=== PATIENT | male | born 1970 | race Hispanic/Latino ===

== ENCOUNTER 2024-12-04 07:34 | Inpatient (IN) | payer SELFPAY ==
[~2024-12-04] VITALS: Ht 167.6 cm; Wt 90.7 kg
[~2024-12-04 07:34] MED LIST: METF-444 PO; SULF-168 PO
--- NOTE | 2024-12-04 08:00 | NUR ---
Patient states that he was in the shower and while he was cleaning his penis he pulled the foreskin back and could not pull it back over the head of his penis, the foreskin. he did try to pull it forward, but the trauma caused some bleeding. upon assessment the head of patient penis is pink in color, with some small blood clots, and some small abrasions, no active bleeding at this time, pain 10/10
[2024-12-04] MEDS: teTANUS/diphthERIA TOXOID [ADULT] 0.5 ML VIAL IM ONE (08:32)
[2024-12-04] MEDS: cefTRIAXone 1G VIAL IVPB ONE (08:33)
[2024-12-04] MEDS: Solu-medROL 125MG VIAL IVP ONE (08:33)
[2024-12-04 08:57] LABS: BASOPHILS # (AUTO) 0.04 K/uL (0.00-0.20); BASOPHILS % (AUTO) 0.6 % (0.0-5.0); EOSINOPHILS # (AUTO) 0.13 K/uL (0.00-0.70); EOSINOPHILS % (AUTO) 2.1 % (0.0-8.0); HEMATOCRIT 41.1 % (42-54); IMMATURE GRANULOCYTE ABSOLUTE 0.05 K/uL (0-1); LYMPHOCYTES % (AUTO) 31.9 % (21.0-51.0); MEAN CORPUSCULAR HEMOGLOBIN 30.7 pg (27.0-33.0); MEAN CORPUSCULAR HGB CONC 34.5 g/dL (32.0-36.0); MEAN CORPUSCULAR VOLUME 88.8 fL (79-99); MONOCYTES # (AUTO) 0.4 K/uL (0.1-1.0); MONOCYTES % (AUTO) 6.4 % (3.0-13.0); NEUTROPHILS # (AUTO) 3.7 K/uL (1.8-7.7); NEUTROPHILS % (AUTO) 58.2 % (40.0-77.0); PLATELET COUNT (AUTO) 326 K/uL (130-400); RED BLOOD CELL COUNT(AUTO) 4.63 MIL/uL (4.50-6.20); RED CELL DISTRIBUTION WIDTH 12.2 % (11.0-15.5); WHITE BLOOD COUNT (AUTO) 6.3 K/uL (4.8-10.8)
[2024-12-04 09:09] LABS: CREATININE 0.6 mg/dL (0.5-1.3); POTASSIUM 3.6 mmol/L (3.5-5.1)
[2024-12-04 09:16] LABS: APPEARANCE,URINE CLEAR (CLEAR); BILIRUBIN,URINE NEGATIVE (NEGATIVE); COLOR,URINE LIGHT-YELLOW (YELLOW); GLUCOSE, URINE (UA) >=1000 mg/dL (NEGATIVE); KETONES,URINE 20 mg/dL (NEGATIVE); LEUKOCYTE ESTERASE ,URINE NEGATIVE Leu/uL (NEGATIVE); MUCUS,URINE RARE LPF (None Seen); NITRATE,URINE NEGATIVE (NEGATIVE); OCCULT BLOOD,URINE SMALL (NEGATIVE); PROTEIN,URINE 10 mg/dL (NEGATIVE); SQUAMOUS EPITHELIAL CELL,UR RARE /HPF (0-2); UROBILINOGEN,URINE 0.2 mg/dL (0.2-1.0); WBC,URINE 0-1 /HPF (0-1)
--- NOTE | 2024-12-04 09:20 | ERN ---
General Chief Complaint: Penis Problem Stated Complaint: PENILE BLEEDING Time Seen by MD: 07:42 Source: patient History of Present Illness Initial Comments PATIENT IS A 53-YEAR-OLD MALE COMING IN TO BE EVALUATED FOR PENILE PROBLEMS. PER PATIENT HE WAS TAKING A SHOWER STARTED HAVING PROBLEMS RETRACTING THE FORESKIN AND STATES THAT HE TRIED TO PULL IT AND NOTICED BLOOD COMING OUT SO HE IS HERE FOR FURTHER EVALUATION. Allergies: Coded Allergies: No Known Drug Allergies (Unverified Allergy, Unknown, 04/01/16) Home Meds Active Scripts Metformin HCl (Metformin HCl) 500 Mg Tablet, 500 MG PO BID, #60 TAB 3 Refills Prov:LYNDSEY BRIGHT MD 04/02/16 Sulfamethoxazole/Trimethoprim (Bactrim Ds/Septra Ds) 1 Tab Tab, 1 TAB PO BID, #28 TAB Prov:LYNDSEY BRIGHT MD 04/02/16 Past Medical History Past Medical History: Diabetes-Type II Past Surgical History: None ROS Dictation CONSTITUTIONAL: NO CHILLS, NO FEVER, NO WEAKNESS, NO DIAPHORESIS, NO MALAISE. HEAD/FACE: NO SIGNS OF TRAUMA. EENT: NO EYE PAIN, NO BLURRED VISION, NO TEARING, NO DOUBLE VISION, NO EAR PAIN, NO EAR DISCHARGE, NO NOSE PAIN, NO NASAL CONGESTION, NO THROAT PAIN, NO THROAT SWELLING, NO MOUTH PAIN. RESPIRATORY: NO COUGH, NO ORTHOPNEA, NO SOB, NO STRIDOR, NO WHEEZING. CARDIOVASCULAR: NO CHEST PAIN, NO EDEMA, NO PALPITATIONS, NO SYNCOPE. GASTROINTESTINAL/ABDOMINAL: NO ABDOMINAL PAIN, NO CONSTIPATION, NO DIARRHEA, NO NAUSEA, NO VOMITING. GENITOURINARY: NO ABNORMAL DISCHARGE, NO DYSURIA, NO FREQUENT URINATION, NO HEM ATURIA. COMPLAINTS OF PAIN IN THE GENITALS. MUSCULOSKELETAL: NO BACK PAIN, NO GOUT, NO JOINT PAIN, NO JOINT SWELLING, NO MUSCLE PAIN, NO MUSCLE STIFFNESS, NO NECK PAIN. INTEGUMENTARY: NO CHANGE IN COLOR, NO CHANGE IN HAIR/NAILS, NO DRYNESS, NO LESION, NO LUMPS, NO RASH. NEUROLOGICAL/PSYCH: NO ANXIETY, NOT DEPRESSED, NO EMOTIONAL PROBLEM, NO HEADACHE, NO NUMBNESS, NO PRE-EXISTING DEFICIT, NO HISTORY OF SEIZURES, NO TREMORS, NO WEAKNESS. HEMATOLOGIC/LYMPHATIC: NOT ANEMIC, NO HISTORY OF BLOOD CLOTS, NO APPARENT BLEEDING, NO BRUISING, GLANDS NOT SWOLLEN. ALL SYSTEMS NEGATIVE, EXCEPT NOTED. Physical Exam Physical Exam Dictation VITAL SIGNS: REVIEWED. GENERAL APPEARANCE: ALERT, ORIENTED X3, NO ACUTE DISTRESS, OBESE. HEAD AND FACE: NON-TRAUMATIC. EYES: PERRL, PINK CONJUNCTIVAS, EYELID NO TRAUMA, ANTERIOR CHAMBER CLEAR. EARS: PINNAS INTACT AND NO SIGNS OF TRAUMA OR ERYTHEMA. EAR CANALS CLEAR AND NO DISCHARGE. TMS NO ERYTHEMA. NOSE: NO DISCHARGE, NO BLEEDING. OROPHARYNX: MOUTH NORMAL, TEETH NO CARIES, TONGUE PINK. PHARYNX CLEAR, NO ERYTHEMA. TONSILS NO EXUDATES, NO ABSCESSES NOTED. MUCOUS MEMBRANE MOIST. NECK: SUPPLE, NON-TENDER, NO THYROMEGALY, NO MASSES, NO JVD, NO BRUITS. BREAST: DEFERRED. CHEST: NO TENDERNESS, NO CREPITUS, NO PARADOXICAL MOVEMENT, NO RETRACTIONS. LUNGS: CLEAR, WELL-VENTILATED, SYMMETRIC, NO RALES, NO WHEEZING, NO RHONCHI, NO STRIDOR, GOOD BREATH SOUNDS BILATERALLY. HEART: REGULAR RATE, REGULAR RHYTHM, NO MURMUR, NO GALLOPS. VASCULAR: NO PERIPHERAL EDEMA. ABDOMEN: SOFT, POSITIVE BOWEL SOUNDS, NONDISTENDED, NO GUARDING, NONTENDER, NO REBOUND, NO MASSES NO HEPATOMEGALY, NO SPLENOMEGALY, NO TRAN'S SIGN, NO HERNIAS. RECTAL: DEFERRED. GENITAL: SWELLING OF THE PENIS, MILD BLOOD NOTICED NEUROLOGICAL: NORMAL SPEECH, GROSS MOTOR FUNCTION INTACT, GROSS SENSORY FUNCTION INTACT. MUSCULOSKELETAL: NECK NONTENDER, FULL RANGE OF MOTION, BACK NONTENDER, FULL RANGE OF MOTION. EXTREMITIES: NONTENDER, FULL RANGE OF MOTION. SKIN: COLOR PINK, DRY, NO TURGOR, NO RASH, NO LACERATIONS, NO ABRASIONS, NO CONTUSIONS. LYMPHATICS: DEFERRED. Results Laboratory and Microbiology Lab and Micro Result Laboratory Tests Test 12/04/24 07:55 12/04/24 08:55 White Blood Count 6.3 K/uL (4.8-10.8) Red Blood Count 4.63 MIL/uL (4.50-6.20) Hemoglobin 14.2 g/dL (14.0-18.0) Hematocrit 41.1 % (42-54) L Mean Corpuscular Volume 88.8 fL (79-99) Mean Corpuscular Hemoglobin 30.7 pg (27.0-33.0) Mean Corpuscular Hemoglobin Concent 34.5 g/dL (32.0-36.0) Red Cell Distribution Width 12.2 % (11.0-15.5) Platelet Count 326 K/uL (130-400) Mean Platelet Volume 9.2 fL (7.5-10.5) Immature Granulocyte % (Auto) 0.8 % (0-1) Neutrophils (%) (Auto) 58.2 % (40.0-77.0) Lymphocytes (%) (Auto) 31.9 % (21.0-51.0) Monocytes (%) (Auto) 6.4 % (3.0-13.0) Eosinophils (%) (Auto) 2.1 % (0.0-8.0) Basophils (%) (Auto) 0.6 % (0.0-5.0) Neutrophils # (Auto) 3.7 K/uL (1.8-7.7) Lymphocytes # (Auto) 2.0 K/uL (1.0-4.8) Monocytes # (Auto) 0.4 K/uL (0.1-1.0) Eosinophils # (Auto) 0.13 K/uL (0.00-0.70) Basophils # (Auto) 0.04 K/uL (0.00-0.20) Absolute Immature Granulocyte (auto 0.05 K/uL (0-1) Nucleated Red Blood Cells 0.0 % (0.0-0.19) Sodium Level 140 mmol/L (136-145) Potassium Level 3.6 mmol/L (3.5-5.1) Chloride Level 101 mmol/L (101-111) Carbon Dioxide Level 26 mmol/L (21-32) Blood Urea Nitrogen 8 mg/dL (7-18) Creatinine 0.6 mg/dL (0.5-1.3) Glomerular Filtration Rate Calc 117 mL/min (>90) Random Glucose 250 mg/dL (70-105) H Total Calcium 8.9 mg/dL (8.5-10.1) Urine Color LIGHT-YELLOW (YELLOW) Urine Appearance CLEAR (CLEAR) Urine pH 5.0 (5.0-8.0) Urine Specific [place] 1.023 (1.001-1.031) Urine Protein 10 mg/dL (NEGATIVE) H Urine Glucose (UA) >=1000 mg/dL (NEGATIVE) H Urine Ketones 20 mg/dL (NEGATIVE) H Urine Occult Blood SMALL (NEGATIVE) H Urine Nitrate NEGATIVE (NEGATIVE) Urine Bilirubin NEGATIVE mg/dL (NEGATIVE) Urine Urobilinogen 0.2 mg/dL (0.2-1.0) Urine Leukocyte Esterase NEGATIVE Drake/uL Urine RBC 2-5 /HPF (0-1) H Urine WBC 0-1 /HPF (0-1) Urine Squamous Epithelial Cells RARE /HPF (0-2) Urine Bacteria None /HPF (None Seen) Labs Reviewed?: Yes MDM MDM: DIFFERENTIAL DIAGNOSIS: PHIMOSIS, PENILE PROBLEM, RATIONALE: TESTS CONSIDERED AND ORDERED SECONDARY TO SHARED DECISION MAKING INCLUDE: LABS, ECG AND RADIOLOGY PREVIOUS OUTSIDE RECORDS REVIEWED: OLD ER VISITS. RISK OF COMPLICATION AND/OR MORBIDITY OR MORTALITY OF PATIENT MANAGEMENT: NONE MEDICATIONS-PER MEDICATION RECONCILIATION NEED FOR HOSPITALIZATION: PATIENT DOES MEET CRITERIA FOR HOSPITALIZATION. NEED FOR EMERGENCY MAJOR/MINOR SURGERY: NO THERE ARE NO SOCIAL CONCERNS WITH THIS PATIENT. PRESCRIPTION DRUG MANAGEMENT PRESCRIPTIONS WILL INCLUDE SYMPTOMATIC CARE PATIENT'S PRIOR EXTERNAL MEDICAL RECORDS FROM OTHER ER VISITS WERE REVIEWED BY ME INDICATED. PRIOR TESTING AND RESULTS FROM PREVIOUS VISITS WERE REVIEWED. PRIOR TESTS WERE TAKEN INTO ACCOUNT WITH MEDICAL DECISION MAKING AND RESOURCE UTILIZATION, INDEPENDENT HISTORIAN/HISTORIANS WERE USED TO OBTAIN COMPLETE MEDICAL HISTORY. I INDEPENDENTLY INTERPRETED THE TEST THAT WERE PERFORMED, RESULTS WERE REVIEWED BY ME AND CONSIDERED FINDINGS ON RADIOLOGY IF ORDERED. MEDICAL MANAGEMENT AND EXAMINATION INTERPRETATION DISCUSSIONS WERE HAD BY ME WITH OTHER QUALIFIED HEALTHCARE PROFESSIONALS INDICATED FOR THE PATIENT'S CARE. PATIENT IS A 53-YEAR-OLD GENTLEMAN COMING IN TO BE EVALUATED FOR PENILE PAIN. ON PHYSICAL EXAM THAT HAS PHIMOSIS PRESENT WITH SOME DISCOMFORT SOME ABRASIONS HE STATES HE HAS TRIED TO PULL IT BACK HIS FORESKIN BUT IT WAS HAVING PAIN. PATIENT WILL BE ADMITTED UNDER THE CARE OF HOSPITALIST GROUP FOR ONGOING MANAGEMENT. UROLOGIST DR. Banks HAS BEEN CONSULTED. ED Course Orders Procedure Category Date Status Time Cbc With Differential LAB 12/04/24 Complete 07:45 Basic Metabolic Panel LAB 12/04/24 Complete 07:45 Urinalysis LAB 12/04/24 Complete W/Microscopic 07:45 Methylprednisolone PHA 12/04/24 Complete Succ 125mg (Solu-Medr 08:00 Tetanus,Diphtheria PHA 12/04/24 Complete Tox [Adult] (Diphther 08:00 Ceftriaxone 1g Vial PHA 12/04/24 Complete (Rocephine 1g Inj) 08:00 Dexamethasone 4mg/Ml PHA 12/04/24 Complete 1ml Vial (Dexametha 10:00 Ketorolac PHA 12/04/24 Complete Tromethamine 15mg/Ml 10:00 0.9%Nacl 1000ml (Ns PHA 12/04/24 Complete 1000ml) 10:00 Current Medications Medications (Trade) Dose Ordered Sig/Adelina Route PRN Reason Start Time Stop Time Status Last Admin Dose Admin Ceftriaxone Sodium (ROCEphine 1G INJ) 1 gm ONCE ONCE IVPB 12/04/24 08:00 12/04/24 08:01 DC 12/04/24 08:33 Dexamethasone Sodium Phosphate (dexaMETHasone 4MG/ML 1ML VIAL) 4 mg ONCE ONCE IV 12/04/24 10:00 12/04/24 10:01 DC 12/04/24 10:03 Ketorolac Tromethamine (toRADol) 15 mg ONCE ONCE IV 12/04/24 10:00 12/04/24 10:01 DC 12/04/24 10:03 Methylprednisolone Sodium Succinate (Solu-medROL 125MG) 125 mg ONCE ONCE IVP 12/04/24 08:00 12/04/24 08:01 DC 12/04/24 08:33 Sodium Chloride 1,000 ml @ 0 mls/hr ONCE ONCE IV 12/04/24 10:00 12/04/24 10:01 DC 12/04/24 10:04 Tetanus/ Diphtheria Toxoids Adsorbed (DiphthERIA-teTANUS TOXOID [ADULT]/ DECAVAC) 0.5 ml ONCE ONCE IM 12/04/24 08:00 12/04/24 08:01 DC 12/04/24 08:32 Vital Signs Date Time Temp Pulse Resp B/P (MAP) Pulse Ox O2 Delivery O2 Flow Rate FiO2 12/04/24 09:00 97.9 112 18 132/82 99 Room Air* 0 21 12/04/24 07:45 98.1 116 18 120/73 98 Room Air* 0 12/04/24 07:35 98.1 123 20 133/83 99 Room Air 0 DX & DISP Disposition: Inpatient Decision to Admit Time: 10:51 Departure Impression: Primary Impression: Phimosis of penis Additional Impression: Penile abrasion Condition: Stable Referrals: SELF,REFERRAL (PCP) ARANZA MORATAYA MD December 04, 2024 09:20
[2024-12-04] MEDS: ketOROlac 15MG/ML VIAL (15MG/ML) IV ONE (10:03)
[2024-12-04] MEDS: dexaMETHasone SOD PHOSPHATE 4 MG/ML 1ML VIAL IV ONE (10:03)
[2024-12-04] MEDS: 0.9%NACL 1000ML 1,000 ML IV ONE (10:04)
[2024-12-04 11:20] LABS: AMPHET/METH SCREEN,URINE NEGATIVE (NEGATIVE); BARBITURATE SCREEN, URINE NEGATIVE (NEGATIVE); BENZODIAZEPINES SCREEN,URINE NEGATIVE (NEGATIVE); CANNABINOID SCREEN,URINE NEGATIVE (NEGATIVE); COCAINE SCREEN,URINE POSITIVE (NEGATIVE); OPIATE SCREEN,URINE NEGATIVE (NEGATIVE); PHENCYCLIDINE SCREEN,URINE NEGATIVE (NEGATIVE)
[2024-12-04 11:24] LABS: HEMOGLOBIN A1C 10.8 % (4.0-6.0)
[2024-12-04 11:28] LABS: INR <= 0.93 (0.85-1.15); PROTHROMBIN TIME 9.8 SEC (9.6-11.6)
[2024-12-04 11:29] LABS: PARTIAL THROMBOPLASTIN TIME 24.5 SEC (26.3-35.5)
--- NOTE | 2024-12-04 11:34 | HP ---
[facility] HISTORY AND PHYSICAL Date of Service: December 04, 2024 Time of Service: 11:34 HISTORY OF PRESENT ILLNESS: This is a 53-year-old male with no significant past medical history who presented to the hospital secondary to problems with his penis. Patient states while taking a shower he had problems retracting the foreskin and states rate tried to pull it and noted there was blood coming. Denies any previous history of phimosis or paraphimosis, problems with penis. Denied any genital discharge, purulent drainage, fever, chills, chest pain, shortness of breath, abdominal pain, nausea, vomiting. He is able to urinate currently. Denied any blood in the urine. Denied any changes in his bowel movement, constipation, diarrhea. He states he is sexually active and has issues with erectile dysfunction. He currently does not take any medications at home. Denies any chest pain at rest or with exertion. He does use cocaine at home. Labs in the ED were notable for white count of 6.3, hemoglobin was 14.2, sodium was 140, potassium was 3.6, chloride was 101 creatinine was 0.6, with glucose was 250, calcium was eight point In the ED patient received Rocephin, dexamethasone, [id number] mg and Tdap. Urology was consulted in the ED by ED physician who agreed to consult on the patient. REVIEW OF SYSTEMS CONSTITUTIONAL: Denies fevers, chills, or night sweats. No unintentional weight loss reported. NEUROLOGICAL: Denies headache, amaurosis fugax, motor weakness, sensory deficit, vertigo/spinning sensation, gait abnormalities, or tremors. ENT: No hearing loss, otalgia, otorrhea, rhinitis, rhinorrhea, hoarseness, or sore throat. CARDIOVASCULAR: Denies any exertional angina, dyspnea on exertion, orthopnea, paroxysmal nocturnal dyspnea, palpitations, life-threatening arrhythmias, claudication. PULMONARY: Denies any shortness of breath, cough, phlegm/sputum, hemoptysis, pleuritic chest pain. SLEEP: Denies morning headaches, daytime somnolence or napping. Denies difficulty falling asleep, staying asleep, waking from sleep. Denies knowledge of snoring. GASTROINTESTINAL: Denies any type of dysphagia to either liquids or solids. Denies nausea, vomiting, pyrosis, early satiety, abdominal pain, diarrhea, constipation, or changes in stool consistency or caliber. Denies coffee-ground emesis, hematemesis, hematochezia, or melanotic stools. GENITOURINARY: Positive for penile pain, blood from the penile area. Denied any dysuria, drainage, genital discharge. ENDOCRINOLOGIC: Denies polyuria, polydipsia, polyphagia or heat/cold intole rances. HEMATOLOGIC: Denies thrombophilia/previous clots, or coagulopathy/bleeding disorders. ONCOLOGIC: Denies personal history of malignancy. DERMATOLOGIC: Denies rashes or pruritus. PSYCHIATRIC: Denies any suicidal or homicidal ideation. Denies hallucinations. PAST MEDICAL HISTORY: No significant past PAST SURGICAL HISTORY: I and D of the upper back secondary to abscess PAST SOCIAL HISTORY: Denied smoking, alcohol. Patient uses cocaine at home. FAMILY HISTORY: Denied any pertinent family history Coded Allergies: No Known Drug Allergies (Unverified Allergy, Unknown, 04/01/16) PHYSICAL EXAM GENERAL APPEARANCE: The patient is awake, alert, and oriented, in no acute cardiopulmonary distress. NEUROLOGICAL: Cranial nerves II-XII grossly intact. Motor is 5/5 in bilateral upper and lower extremities proximal to distal. No sensory deficits. HEENT: Face is symmetric. Pupils are equal and reactive. Extraocular movements are intact. NECK: Supple. No JVD. No thyromegaly. No submental, submandibular, pre- /postauricular, occipital or supraclavicular lymphadenopathy. CHEST: Normal chest expansion. No Telemetry. LUNGS: Absence of any rales, rhonchi or any wheezing. CARDIOVASCULAR: Regular. S1 and S2 normal. No appreciable rubs, murmurs or g allops. ABDOMEN: Soft, nontender, and nondistended. There is no rebound, voluntary gua rding, or rigidity. : Patient has evidence of paraphimosis with penile abrasion. There is superficial blood on the penis with possible balanitis EXTREMITIES: Non-edematous and not cyanotic. No clubbing. Good capillary refill. SKIN: No skin breakdown. Vital Sign (Last 24 Hours) 12/04/24 09:00 Temp 97.9 Pulse 112 Resp 18 B/P (MAP) 132/82 Pulse Ox 99 O2 Delivery Room Air* O2 Flow Rate 0 FiO2 21 LABS: Laboratory: Test 12/04/24 08:55 5/21/25 07:55 Range/Units Urine Color LIGHT-YELLOW YELLOW Urine Appearance CLEAR CLEAR Urine pH 5.0 5.0-8.0 Urine Specific [place] 1.023 1.001-1.031 Urine Protein 10 H NEGATIVE mg/dL Urine Glucose (UA) >=1000 H NEGATIVE mg/dL Urine Ketones 20 H NEGATIVE mg/dL Urine Occult Blood SMALL H NEGATIVE Urine Nitrate NEGATIVE NEGATIVE Urine Bilirubin NEGATIVE NEGATIVE mg/dL Urine Urobilinogen 0.2 0.2-1.0 mg/dL Urine Leukocyte Esterase NEGATIVE NEGATIVE Drake/uL Urine RBC 2-5 H 0-1 /HPF Urine WBC 0-1 0-1 /HPF Urine Squamous Epithelial Cells RARE 0-2 /HPF Urine Bacteria None None Seen /HPF White Blood Count 6.3 4.8-10.8 K/uL Red Blood Count 4.63 4.50-6.20 MIL/uL Hemoglobin 14.2 14.0-18.0 g/dL Hematocrit 41.1 L 42-54 % Mean Corpuscular Volume 88.8 79-99 fL Mean Corpuscular Hemoglobin 30.7 27.0-33.0 pg Mean Corpuscular Hemoglobin Concent 34.5 32.0-36.0 g/dL Red Cell Distribution Width 12.2 11.0-15.5 % Platelet Count 326 130-400 K/uL Mean Platelet Volume 9.2 7.5-10.5 fL Immature Granulocyte % (Auto) 0.8 0-1 % Neutrophils (%) (Auto) 58.2 40.0-77.0 % Lymphocytes (%) (Auto) 31.9 21.0-51.0 % Monocytes (%) (Auto) 6.4 3.0-13.0 % Eosinophils (%) (Auto) 2.1 0.0-8.0 % Basophils (%) (Auto) 0.6 0.0-5.0 % Neutrophils # (Auto) 3.7 1.8-7.7 K/uL Lymphocytes # (Auto) 2.0 1.0-4.8 K/uL Monocytes # (Auto) 0.4 0.1-1.0 K/uL Eosinophils # (Auto) 0.13 0.00-0.70 K/uL Basophils # (Auto) 0.04 0.00-0.20 K/uL Absolute Immature Granulocyte (auto 0.05 0-1 K/uL Nucleated Red Blood Cells 0.0 0.0-0.19 % Prothrombin Time 9.8 9.6-11.6 SEC Prothromb Time International Ratio <= 0.93 0.85-1.15 Activated Partial Thromboplast Time 24.5 L 26.3-35.5 SEC Sodium Level 140 136-145 mmol/L Potassium Level 3.6 3.5-5.1 mmol/L Chloride Level 101 101-111 mmol/L Carbon Dioxide Level 26 21-32 mmol/L Blood Urea Nitrogen 8 7-18 mg/dL Creatinine 0.6 0.5-1.3 mg/dL Glomerular Filtration Rate Calc 117 >90 mL/min Random Glucose 250 H 70-105 mg/dL Hemoglobin A1c 10.8 H 4.0-6.0 % Estimated Average Glucose (eAG) 263 H 70-126 mg/dL Total Calcium 8.9 8.5-10.1 mg/dL Urine Opiates Screen NEGATIVE NEGATIVE Urine Barbiturates Screen NEGATIVE NEGATIVE Urine Phencyclidine Screen NEGATIVE NEGATIVE Urine Amphetamines Screen NEGATIVE NEGATIVE Urine Benzodiazepines Screen NEGATIVE NEGATIVE Urine Cocaine Screen POSITIVE H NEGATIVE Urine Marijuana (THC) Screen NEGATIVE NEGATIVE Current Medications Medications (Trade) Dose Ordered Sig/Adelina Route PRN Reason Start Time Stop Time Status Last Admin Dose Admin Insulin Human Regular (humuLIN R 100 UNIT/ML 3ML) INSULIN SLIDING SCAL... Q6H6 SQ 12/04/24 12:00 01/03/25 11:59 DIAGNOSTICS / RADIOLOGY: [ ] ASSESSMENT: Suspected paraphimosis POA Hyperglycemia secondary to uncontrolled diabetes mellitus type newly diagnosed Substance abuse with positive cocaine PLAN: - patient will be admitted to medical-surgical unit -in reference to suspected paraphimosis. We will request consultation with Urology. Patient will be NPO for now. Continue with IV Rocephin. Continue on IV fluids. We will follow recommendations per Urology -in reference to hyperglycemia. We will check a hemoglobin A1c. Patient will be started on sliding scale insulin -patient was counseled regarding cocaine cessation -check G and C and HIV secondary to drug use -further orders per hospitalization course Advanced Care Planning Which of the following were discussed: Hospice care: Yes __ No _x_ Therapeutic options: Yes __ No __ Advance directives: Yes __ No __ Other discussions: Discussed with who?: patient (Patient, family or surrogates) Voluntary nature of this service was explained to the patient? Yes _x_ No __ Amount of time spent: 25 minutes CHANO Forrest MD, MD December 04, 2024 11:34
[2024-12-04] MEDS: INSULIN humuLIN R 100 UNIT/ML 3ML SQ SCH (11:38)
--- NOTE | 2024-12-04 11:45 | EKG ---
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
[2024-12-04] MEDS: 0.9%NACL 1000ML 1,000 ML IV SCH (14:13)
[2024-12-04] MEDS ORDERED: LIDOCAINE HCL 2% VISCOUS 15 ML UDCUP PO ONE (16:30)
[2024-12-04] MEDS: LIDO 2% VISC 30ML+MAG/AL/SIMETH 30ML+DICYCLOMINE 20MG 10ML PO ONE (16:30)
[2024-12-04] MEDS ORDERED: COMPOUND PO MISCELLANEOUS 1 EACH MISC MISC PRN (16:30)
--- NOTE | 2024-12-04 16:30 | NUR ---
PT AOX4. PT DENIES ANY HOME MEDICATION. PT ADMITS TO USING COCAINE ON 12/03. PT STATES DRINKS A 12 PK PER DAY ON WEEKEND. 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 PENIS GLAND IS SWOLLEN AND PINK NO ACTIVE BLEEDING. PT HAD AN I&D IN 2023 DENIES ANY OTHER SURGERY. DENIES ANY HEALTH HISTORY. PT HAS PARTIAL DENTURES UPPER AND LOWER. PT ABLE TO URINATE WITH OUT DIFFICULTY. BED POSITIONED TO LOWEST POSTION. CALL LIGHT WITH IN REACH. PT WAS ADVISE TO USE CALL LIGHT WHEN GETTING OUT OF BED TO PREVENT ANY INJURY
[2024-12-04 18:00] VITALS: BP 149/87; PULSE 104; RESP 17; TEMP 98
[2024-12-04] MEDS ORDERED: PoTASSium chloRIDE 20MEQ/100ML 100 ML IV PRN (19:30)
[2024-12-04] MEDS ORDERED: PoTASSium chloRIDE 20MEQ ER 20 MEQ ERTAB PO PRN (19:30)
[2024-12-04] MEDS ORDERED: PoTASSium chl 10% ELIXIR 20MEQ 20 MEQ/15 ML UDCUP PO PRN (19:30)
[2024-12-04] MEDS: FAMOTIDINE 20MG VIAL IV SCH (19:33)
[2024-12-04] MEDS: ketOROlac 15MG/ML VIAL (15MG/ML) IV PRN (19:39)
[2024-12-04 20:00] VITALS: BP 149/83; PULSE 104; RESP 20; TEMP 98.1
--- NOTE | 2024-12-04 20:00 | NUR ---
MD ROUNDS DR. NIXON AT BEDSIDE.
[2024-12-04] MEDS: PoTASSium chloRIDE 20MEQ/100ML 100 ML IV PRN (20:46)
[2024-12-04] MEDS: morPHINE 2 MG SYG IVP PRN (20:59)
--- NOTE | 2024-12-04 21:25 | NUR ---
COMMUNICATION DR. BLOOM UPDATED ON PATIENT AND DR. NIXON VISIT. NEW ORDERS FOR DIET RECEIVED AND DIETARY CONSULT.
--- NOTE | 2024-12-04 22:24 | CONS ---
CONSULTATION NOTE Date of Service: December 04, 2024 Reason for Consultation: Penile swelling/paraphimosis Requesting Physician: Shoaib Catherine MD HISTORY OF PRESENT ILLNESS: 53-year-old male with no significant past medical history who presented to the hospital secondary to problems with his penis. Patient states while taking a shower he had problems retracting the foreskin and states rate tried to pull it and noted there was blood coming. Denied any genital discharge, purulent drainage, fever, chills, chest pain, shortness of breath, abdominal pain, nausea, vomiting. He is able to urinate currently. Denied any blood in the urine. Denied any changes in his bowel movement, constipation, diarrhea. He states he is sexually active and has issues with erectile dysfunction. He currently does not take any medications at home. He does use cocaine at home. Labs in the ED were notable for white count of 6.3, hemoglobin was 14.2, sodium was 140, potassium was 3.6, chloride was 101 creatinine was 0.6, with glucose was 250, calcium was eight point In the ED patient received Rocephin, dexamethasone, [id number] mg and Tdap. Patient admitted to the floor with a urological consult. REVIEW OF SYSTEMS CONSTITUTIONAL: Denies fever, chills, or fatigue. HEAD/FACE: No signs of trauma. EENT: Denies eye pain, blurred vision, double vision, or light sensitivity. RESPIRATORY: Denies shortness of breath, cough, wheezing CARDIOVASCULAR: Denies chest pain, palpitation, syncope GASTROINTESTINAL/ABDOMINAL: Denies abdominal pain, constipation, diarrhea, nausea or vomiting GENITOURINARY: Penile pain MUSCULOSKELETAL: Denies joint pain, tenderness, or trauma. INTEGUMENTARY: Denies rash or itchiness NEUROLOGICAL/PSYCH: Denies anxiety, depression, heat or cold intolerance. PAST MEDICAL HISTORY: None PAST SURGICAL HISTORY: None PAST SOCIAL HISTORY: Drinks socially Uses recreational drugs Denies smoking FAMILY HISTORY: Not contributory Coded Allergies: No Known Drug Allergies (Unverified Allergy, Unknown, 04/01/16) PHYSICAL EXAM EYES: Anicteric. Pupils equal and reactive. HENT: No oral thrush seen, moist Oral mucosa NECK: Supple, no JVD or thyromegaly. LUNGS: Good air entry. No rales, no rhonchi. CARDIOVASCULAR: S1, S2 regular. No murmur heard. ABDOMEN: Soft, non tender, bowel sounds present, no organomegaly CENTRAL NERVOUS SYSTEM: Awake, alert, oriented x 3. No focal deficits. SKIN: No rashes, no swelling. LYMPHATICS: No peripheral lymphadenopathy MUSCULOSKELETAL: No joint swelling, erythema or tenderness. EXTREMITIES: No cyanosis or clubbing BACK: No deformity, no pressure ulcer. GENITOURINARY: Penile/glands erythema secondary to paraphimosis. Swelling of the coronal sulcus. Vital Sign (Last 24 Hours) 12/04/24 20:00 Temp 98.1 Pulse 104 Resp 20 B/P (MAP) 149/83 Pulse Ox 94 O2 Delivery Nasal Cannula O2 Flow Rate 0 FiO2 21 LABS: Laboratory: Test 12/04/24 19:22 12/04/24 08:55 12/04/24 07:55 Range/Units Whole Blood Glucose 232 H 70-110 MG/DL Urine Color LIGHT-YELLOW YELLOW Urine Appearance CLEAR CLEAR Urine pH 5.0 5.0-8.0 Urine Specific Amity 1.023 1.001-1.031 Urine Protein 10 H NEGATIVE mg/dL Urine Glucose (UA) >=1000 H NEGATIVE mg/dL Urine Ketones 20 H NEGATIVE mg/dL Urine Occult Blood SMALL H NEGATIVE Urine Nitrate NEGATIVE NEGATIVE Urine Bilirubin NEGATIVE NEGATIVE mg/dL Urine Urobilinogen 0.2 0.2-1.0 mg/dL Urine Leukocyte Esterase NEGATIVE NEGATIVE Drake/uL Urine RBC 2-5 H 0-1 /HPF Urine WBC 0-1 0-1 /HPF Urine Squamous Epithelial Cells RARE 0-2 /HPF Urine Bacteria None None Seen /HPF White Blood Count 6.3 4.8-10.8 K/uL Red Blood Count 4.63 4.50-6.20 MIL/uL Hemoglobin 14.2 14.0-18.0 g/dL Hematocrit 41.1 L 42-54 % Mean Corpuscular Volume 88.8 79-99 fL Mean Corpuscular Hemoglobin 30.7 27.0-33.0 pg Mean Corpuscular Hemoglobin Concent 34.5 32.0-36.0 g/dL Red Cell Distribution Width 12.2 11.0-15.5 % Platelet Count 326 130-400 K/uL Mean Platelet Volume 9.2 7.5-10.5 fL Immature Granulocyte % (Auto) 0.8 0-1 % Neutrophils (%) (Auto) 58.2 40.0-77.0 % Lymphocytes (%) (Auto) 31.9 21.0-51.0 % Monocytes (%) (Auto) 6.4 3.0-13.0 % Eosinophils (%) (Auto) 2.1 0.0-8.0 % Basophils (%) (Auto) 0.6 0.0-5.0 % Neutrophils # (Auto) 3.7 1.8-7.7 K/uL Lymphocytes # (Auto) 2.0 1.0-4.8 K/uL Monocytes # (Auto) 0.4 0.1-1.0 K/uL Eosinophils # (Auto) 0.13 0.00-0.70 K/uL Basophils # (Auto) 0.04 0.00-0.20 K/uL Absolute Immature Granulocyte (auto 0.05 0-1 K/uL Nucleated Red Blood Cells 0.0 0.0-0.19 % Prothrombin Time 9.8 9.6-11.6 SEC Prothromb Time International Ratio <= 0.93 0.85-1.15 Activated Partial Thromboplast Time 24.5 L 26.3-35.5 SEC Sodium Level 140 136-145 mmol/L Potassium Level 3.6 3.5-5.1 mmol/L Chloride Level 101 101-111 mmol/L Carbon Dioxide Level 26 21-32 mmol/L Blood Urea Nitrogen 8 7-18 mg/dL Creatinine 0.6 0.5-1.3 mg/dL Glomerular Filtration Rate Calc 117 >90 mL/min Random Glucose 250 H 70-105 mg/dL Hemoglobin A1c 10.8 H 4.0-6.0 % Estimated Average Glucose (eAG) 263 H 70-126 mg/dL Total Calcium 8.9 8.5-10.1 mg/dL Urine Opiates Screen NEGATIVE NEGATIVE Urine Barbiturates Screen NEGATIVE NEGATIVE Urine Phencyclidine Screen NEGATIVE NEGATIVE Urine Amphetamines Screen NEGATIVE NEGATIVE Urine Benzodiazepines Screen NEGATIVE NEGATIVE Urine Cocaine Screen POSITIVE H NEGATIVE Urine Marijuana (THC) Screen NEGATIVE NEGATIVE DIAGNOSTICS / RADIOLOGY: None to review ASSESSMENT: 53-year-old man uncircumcised presents to the hospital secondary to penile pain with a diagnosis of acute paraphimosis PLAN: 1. We will conduct a bedside reduction of his paraphimosis. Patient will be administered he has standard pain medications of morphine. 2. Once the paraphimosis is successfully reduced, patient will be instructed not to pull back his foreskin for a period of several days. 3. He is definitely going to need a circumcision which we can discuss in an a mbulatory setting. 60 minutes spent to complete a consult more than half of the time spent at bedside in in counseling and coordination of care and addressing questions posed by patient, some time was spent discussing with members of his care team, the rest of the time was spent reviewing medical records. ZEHRA NIXON MD December 04, 2024 22:24
--- NOTE | 2024-12-04 22:30 | PRN ---
Procedure Note INDICATION FOR PROCEDURE: Acute paraphimosis PROCEDURE: 30336 Reduction of acute paraphimosis DATE OF PROCEDURE: 12/04/2024 CASTING TRUCKER: Broderick Nixon MD PROCEDURE NOTE: Patient identified in his room. Details of the procedure explained to the patient. He was administered a single dose of intravenous morphine. The procedure was performed in a clean fashion as much as possible. The glans penis was grabbed with a firm performance tester to reduce the edema in the coronal sulcus. After about5 minutes of decompression of the coronal sulcus, the ring of phimosis was grabbed and coaxial force was applied using the thumb fingers to the glans pushing it inwardly were pulling the band of phimosis outwardly. The paraphimosis was successfully reduced. Patient was cleaned up. There were no complications. FINDINGS: Successful reduction of the paraphimosis IMPRESSION: Phimosis PLAN: 1. We have successfully reduce the paraphimosis at the bedside. 2. Patient will be recommended for discharge home on 12/05/2024. He might need a few days of Keflex. 3. Patient to a follow up with us in the office. He would need an adult surgical circumcision. ZEHRA NIXON MD December 04, 2024 22:30
[2024-12-05] VITALS: BP 137/79; PULSE 98; RESP 20; TEMP 98.2
[2024-12-05 04:00] VITALS: BP 134/81; PULSE 84; RESP 20; TEMP 98.4
[2024-12-05 05:02] LABS: HEMATOCRIT 37.9 % (42-54); IMMATURE GRANULOCYTE ABSOLUTE 0.07 K/uL (0-1); LYMPHOCYTES # (AUTO) 1.2 K/uL (1.0-4.8); LYMPHOCYTES % (AUTO) 10.9 % (21.0-51.0); MEAN CORPUSCULAR HEMOGLOBIN 30.8 pg (27.0-33.0); MEAN CORPUSCULAR HGB CONC 34.6 g/dL (32.0-36.0); MEAN CORPUSCULAR VOLUME 89.2 fL (79-99); MONOCYTES # (AUTO) 0.6 K/uL (0.1-1.0); MONOCYTES % (AUTO) 5.4 % (3.0-13.0); NEUTROPHILS # (AUTO) 9.1 K/uL (1.8-7.7); NEUTROPHILS % (AUTO) 83.1 % (40.0-77.0); PLATELET COUNT (AUTO) 308 K/uL (130-400); RED BLOOD CELL COUNT(AUTO) 4.25 MIL/uL (4.50-6.20); WHITE BLOOD COUNT (AUTO) 10.9 K/uL (4.8-10.8)
[2024-12-05 05:27] LABS: CREATININE 0.7 mg/dL (0.5-1.3); POTASSIUM 3.9 mmol/L (3.5-5.1)
[2024-12-05 05:50] LABS: HIV 1&2 ANTIBODY Non-Reactive (Negative); HIV-1 p24 Antigen Non-Reactive (Negative)
[2024-12-05 08:00] VITALS: BP 138/81; PULSE 85; RESP 18; TEMP 97.7
[2024-12-05 09:07] VITALS: O2SAT 97
[2024-12-05] MEDS ORDERED: CEPH500B PO (10:04)
--- NOTE | 2024-12-05 10:24 | NUR ---
DCP: HOME Pt currently lives with his sps Leena Arellano [phone]. Pt denied any insecurities with food, skilled nursing, and/or utilities. Pt does not have DME, home health, or provider services. Pt is able to complete ADLs independently. PCP and RX needs are met at [facility]. At [place] pt will return home and son can assist with transportation. Addendum: 12/05/24 at 1026 by JALEESA GOMES SS Amended: Links added.
[2024-12-05] MEDS ORDERED: cefTRIAXone 2GM VIAL IVPB SCH (12:00)
--- NOTE | 2024-12-05 12:10 | NUR ---
DISCHARGE PT PIV DCD PT VERBALIZED UNDERSTANDING OF DISCHARGE INSTRUCTIONS PT GATHERED AND TOOK ALL BELONGINGS PT HAD NO FURTHER QUESTIONS AT TIME OF DISCHARGE
[2024-12-06] MEDS ORDERED: METF-444 PO (07:43)
--- NOTE | 2024-12-06 07:45 | DS ---
Discharge Summary Hospital Course Summary: This is a late dictation date of service 12/05/2024 The patient, a 53-year-old male with no significant past medical history, presented with penile swelling and pain following an attempt to retract his foreskin while showering, leading to bleeding. He denied any prior issues with phimosis or paraphimosis and reported being sexually active with erectile dysfunction but not on any medications. He also disclosed cocaine use. Initial labs showed mild hyperglycemia with a glucose level of 250 but were otherwise unremarkable. In the emergency department, the patient received Rocephin, dexamethasone, methylprednisolone, and Tdap. Urology was consulted, and Dr. Abebe diagnosed him with acute paraphimosis. A bedside reduction of the paraphimosis was successfully performed with morphine for pain management. Plan and Recommendations: The patient was instructed to avoid retracting his foreskin for several days post-reduction. A follow-up for a potential circumcision was advised in an outpatient setting. The patient was stable for discharge on 12/05/2024 with a prescription for Keflex 500 mg every 8 hours for seven days. Follow-up appointments were scheduled with Dr. Abebe for further evaluation and with the patients primary care physician within 2-3 days. Condition on Discharge: The patient was hemodynamically stable and discharged with clear instructions for medication adherence and follow-up care. [employer] Attendant(s): Dr. Abebe- Urologist Procedure(s): 12/04/24- Reduction of paraphimosis by Dr. Abebe Assessment/Plan: ASSESSMENT: Suspected paraphimosis POA Hyperglycemia secondary to uncontrolled diabetes mellitus type newly diagnosed Substance abuse with positive cocaine Discharge diagnosis Phimosis Hyperglycemia secondary to uncontrolled diabetes mellitus type newly diagnosed - advised patient to follow up with PCP in two three days and diet modifications. Metformin 500 mg p.o. b.i.d. times 30 days Substance abuse with positive cocaine Discharge Instructions: Follow up with your PCP in 2-3 days Please see new medications Follow up with your urologist in one week Home Medications: Active Scripts Cephalexin Monohydrate (Keflex) 500 Mg Cap, 1 CAP PO TID for 7 Days, #21 CAP 0 Refills Prov:RONEL MATAMOROS 12/05/24 Discontinued Scripts Metformin HCl (Metformin HCl) 500 Mg Tablet, 500 MG PO BID, #60 TAB 3 Refills Prov:LYNDSEY BRIGHT MD 04/02/16 Sulfamethoxazole/Trimethoprim (Bactrim Ds/Septra Ds) 1 Tab Tab, 1 TAB PO BID, #28 TAB Prov:LYNDSEY BRIGHT MD 04/02/16 New Medications: Cephalexin Monohydrate (Keflex) 500 Mg Cap 1 CAP PO TID for 7 Days, #21 CAP 0 Refills Metformin HCl (Metformin HCl) 500 Mg Tablet 1 TAB PO BID for 30 Days, #60 TAB 0 Refills Time spent arranging discharge: 31-60 minutes ATTESTATION BY PHYSICIAN I have seen and examined the patient. I reviewed the documentation, medical decision making, and treatment plan as noted by the mid-level provider above. I agree with the findings and plan of care. SCOTT SMILEY MD, [facility] December 06, 2024 07:45
== END 2024-12-05 12:25 | disposition home or self-care (01) | DRG 728 ==
LOC: EDH 07:34 → EDHIP 07:35 → 3AH 16:50
PROVIDERS: ADMIT Internal Medicine; ATTEND Internal Medicine
PROC: 0VNTXZZ Release Prepuce, External Approach (ICD-10-PCS; principal; 2024-12-04)
PROC: 3E0234Z Introduction of Serum, Toxoid and Vaccine into Muscle, Percutaneous Approach (ICD-10-PCS; 2024-12-04)
DX: N47.2 Paraphimosis (principal); E11.65 Type 2 diabetes mellitus with hyperglycemia; F14.10 Cocaine abuse, uncomplicated; N48.89 Other specified disorders of penis; Z23 Encounter for immunization; Z79.84 Long term (current) use of oral hypoglycemic drugs
CPT/HCPCS: 36415; 80048; 80305; 81001; 82948; 83036; 85025; 85610; 85730; 86701; 87040; 87390; 87491; 87591; 90714; 93005; 99285; G0378; J0696; J1100; J1815; J1885; J2270; J2919; J3480; J3490; J7030